=== PATIENT | male | born 1985 | race Caucasian/White ===

== ENCOUNTER 2018-01-01 08:42 | Day surgery (SDC) | payer OTHER ==
[2018-01-01] MEDS ORDERED: DIAZEPAM 5 MG TAB PO ONE (08:45)
[2018-01-01] MEDS ORDERED: diphenhydrAMINE 25 MG CAP PO ONE ×2 (08:45→09:06)
[2018-01-01] MEDS ORDERED: FAMOTIDINE 20 MG TAB PO ONE (08:45)
[2018-01-01] MEDS ORDERED: ASPIRIN EC 325 MG TAB PO ONE ×2 (08:45→09:06)
[2018-01-01] MEDS ORDERED: NS 1,000 ML IV ONE (08:45)
[2018-01-01] MEDS ORDERED: FAMOTIDINE 20 MG TAB ONE (09:06)
[2018-01-01] MEDS ORDERED: DIAZEPAM 5 MG TAB ONE (09:06)
[2018-01-01 09:29] LABS: PLATELET COUNT 178 10^3/uL (150-400)
[2018-01-01 09:38] LABS: INR 0.91 (0.83-1.16); PROTIME(PATIENT) 12.5 SEC (12.0-15.0)
--- NOTE | 2018-01-01 10:31 | PDHPUP ---
History & Physical Update H&P update statement: This history and physical update is based on an assessment of the patient which was completed after admission or registration (within 24 hours), but prior to the surgery/procedure. H&P update: H&P reviewed & patient examined, no change in patient's condition since H&P completed (Severo test on right wrist normal at less than 5 sec.)
--- NOTE | 2018-01-01 10:31 | PDPROPOC ---
Sedation Plan of Care Sedation Plan of Care: vital signs stable, mental status noted, patient educated of risks, benefits, alternatives, patient can tolerate sedation ASA Classification: ASA 1 Planned drugs: fentanyl, midazolam Mallampati Score: Class 3 Mallampati Reference Image: Patient passed 3-3-2 rule?: Yes
[2018-01-01] MEDS ORDERED: LIDOCAINE 1% 300 MG/30 ML SDV ONE (12:35)
[2018-01-01] MEDS ORDERED: IOPAMIDOL (ISOVUE-370) 150 ML BTL IV ONE (12:36)
[2018-01-01] MEDS ORDERED: HEPARIN 10,000 UNIT/10 ML MDV (1,000 UNIT/ML) ONE (12:36)
[2018-01-01] MEDS ORDERED: MIDAZOLAM 2 MG/2 ML VIAL ONE ×3 (12:36→13:20)
[2018-01-01] MEDS ORDERED: fentaNYL 100 MCG/2 ML INJ ONE (12:36)
[2018-01-01] MEDS ORDERED: VERAPAMIL 5 MG/2 ML VIAL ONE (12:36)
[2018-01-01] MEDS ORDERED: NITROGLYCERIN 1,500 MCG/15 ML VIAL MISC ONE (13:22)
[2018-01-01] MEDS ORDERED: ONDANSETRON 4 MG/2 ML VIAL IVP PRN (14:01)
[2018-01-01] MEDS ORDERED: ATROPINE SULFATE 1 MG/10 ML SYR IVP PRN (14:01)
[2018-01-01] MEDS ORDERED: HYDROCODONE/APAP 5/325 TAB PO PRN (14:01)
--- NOTE | 2018-01-01 14:09 | PDDXCAT ---
Diagnostic Cath Note - . Date: 01/01/18 Business Quality Assurance Analyst: Vishnu Indication: other (Chest pain, risk factors for CAD , and abnormal nuclear stress test.) - Procedure Access: right wrist Procedure: left heart catheterization, coronary angiography, left ventriculogram - Materials Left Heart Cath size: 5F Left Heart Cath materials: JL3.5, pigtail, Pastor's R - Findings-Left Heart Catheterization LM: Angiographically normal. LAD: Angiographically normal. LCX: Angiographically normal. RCA: Angiographically normal; there was catheter induced spasm of the proximal RCA that resolved with intracoronary nitroglycerin. EDP: 17 mmHg LVEF: 65% Wall motion: Normal Complications: None Estimated blood loss: <50ml Closure method: TR Band Assessment: 1) Normal left ventricular systolic function. 2) Normal coronary arteries. Patient Problems: Problems Problem Status Onset Anxiety about health Acute Chest pain Acute
--- NOTE | 2018-01-02 11:23 | CPEKG ---
Test Reason : OPEN Blood Pressure : / mmHG Vent. Rate : 086 BPM Atrial Rate : 088 BPM P-R Int : 119 ms QRS Dur : 088 ms QT Int : 364 ms P-R-T Axes : 029 027 -09 degrees QTc Int : 436 ms Sinus rhythm Atrial premature complex Borderline T abnormalities, inferior leads Confirmed by Cynthia Grove ([id number]) on 01/02/2018 11:23:09 AM Referred By: Confirmed By:Cynthia Grove
== END 2018-01-01 17:03 | disposition home or self-care (01) ==
LOC: FCATH 08:42
PROVIDERS: ATTEND Internal Medicine Interventional Cardiology
PROC: B2151ZZ Fluoroscopy of Left Heart using Low Osmolar Contrast (ICD-10-PCS; principal; 2018-01-01)
PROC: B2111ZZ Fluoroscopy of Multiple Coronary Arteries using Low Osmolar Contrast (ICD-10-PCS; principal; 2018-01-01)
PROC: 4A023N7 Measurement of Cardiac Sampling and Pressure, Left Heart, Percutaneous Approach (ICD-10-PCS; principal; 2018-01-01)
DX: R07.9 Chest pain, unspecified (principal); I10 Essential (primary) hypertension; R94.39 Abnormal result of other cardiovascular function study; E78.5 Hyperlipidemia, unspecified; R74.0 Nonspecific elevation of levels of transaminase and lactic acid dehydrogenase [LDH]
CPT/HCPCS: 93005; 93458; C1769; J1644; J2250; J3010; Q9967